=== PATIENT | female | born 1950 | race Caucasian/White ===

== ENCOUNTER 2020-10-24 11:43 | Emergency (ER) | payer MEDICARE, OTHER, SELFPAY ==
--- NOTE | 2020-10-24 11:43 | CT_ITS ---
WS: [id number] CT HEAD TECHNIQUE: Noncontrast CT of the head obtained from the skullbase to the vertex. CLINICAL INFORMATION: syncope COMPARISON: None. DLP: 852.[address] scans at [facility] use at least one of these dose optimization techniques: automat ed exposure control; mA and/or kV adjustment per patient size (includes targeted exams where dose is matched to clinical indication); or iterative reconstruction. FINDINGS: No evidence of intracranial hemorrhage or mass effect. Ventricular system and basal cisterns are brothers nt. Mild small vessel changes with moderate parenchymal volume loss more prominent in the frontal lob es. No extra-axial fluid collections. No evidence of mass or mass effect. Normal berumen-white different iation. Paranasal sinuses and mastoid air cells are well aerated. .Normal visualized soft tissues. CT/CT head wo con* [id number] IMPRESSION: 1. No evidence of intracranial hemorrhage or mass effect. 2. Mild small vessel changes with moderate parenchymal volume loss in the fron ubaldo lobes. 3. No acute intracranial findings.
--- NOTE | 2020-10-24 11:43 | XR_ITS ---
WS: [id number] Portable AP upright chest, 10/24/2020 Clinical Data: syncope Comparison: None. Findings: No nodules, masses or effusions are seen. The heart is normal. The pulmonary vascularity is not increased. No pneumonia or pneumothorax is seen. The aortic arch shows mild tortuosity. There ar e monitor leads on the chest and abdominal cooney. XR/XR chest 1V portable [id number] Impression: Atherosclerosis.
--- NOTE | 2020-10-24 11:44 | ECG_ITS ---
[facility] Test Date: 2020-10-24 Pat Name: Farnaz Kirkland Department: Room: Gender: Female [employer]: : 1950 Requested By: Elmer Potter Order Number: [id number] Diamond MD: Juan Carlos Gilmore M.D. Measurements Intervals [place] Rate: 79 P: 26 VT: 176 QRS: -13 QRSD: 100 T: 9 QT: 387 QTc: 444 Interpretive Statements SINUS RHYTHM No previous ECG available for comparison Electronically Signed On 10-24-2020 16:02:39 PEDICURIST by Juan Carlos Gilmore M.D. [id number]
[2020-10-24 11:48] VITALS: BP 191/84; PULSE 80; RESP 18; O2SAT 92; BMI 34.0
[2020-10-24 12:05] VITALS: BP 171/89; PULSE 83; RESP 15; O2SAT 92
[2020-10-24 12:21] LABS: Basophils # 0.1 10^3/uL (0.0-0.1); Basophils % 0.7 %; Eosinophils # 0.2 10^3/uL (0.0-0.8); Eosinophils % 2.8 %; Hematocrit 40.1 % (37.0-47.0); Hemoglobin 13.1 g/dL (11.5-15.3); Lymphocytes % 40.8 %; Mean Corpuscular HGB Conc 32.7 g/dL (30.0-36.0); Mean Corpuscular Hemoglobin 29.7 pg (28.0-34.0); Mean Corpuscular Volume 90.9 fL (81-99); Mean Platelet Volume 9.1 fL (7.4-10.4); Monocytes # 0.7 10^3/uL (0.2-0.9); Neutrophils # 3.28 10^3/uL (1.8-7.7); Neutrophils % 45.2 %; Nucleated Red Blood Cells % 0 %; Platelet Count 341 10^3/cmm (130-400); Red Blood Count 4.41 10^6/uL (4.1-5.3); Red Cell Distribution Width 13.1 % (12.1-15.1); White Blood Count 7.3 10^3/uL (4.0-10.0)
[2020-10-24] MEDS: ondansetron 2 mg/ML SDV 2 mL 4 MG IVP (12:25)
[2020-10-24] MEDS: sodium chloride 0.9% 1,000 ML 999 ML IV (12:25)
[2020-10-24] MEDS: labetalol 5 mg/mL SDV 20mL 10 MG IVP ×2 (12:26→16:03)
[2020-10-24 12:42] LABS: INR 0.96 (0.8-1.2)
[2020-10-24 12:51] LABS: Lactate (Lactic Acid level) 1.5 mmol/L (0.5-2.2)
[2020-10-24 12:55] LABS: Troponin(5th) Baseline 7 ng/L (0-10)
[2020-10-24 13:04] LABS: Alanine Aminotransferase 22 U/L (0-33); Albumin Level 4.3 g/dL (3.5-5.2); Alkaline Phosphatase 85 IU/L (35-105); Anion Gap 14.6 (5-19); Aspartate Amino Transferase 21 U/L (0-32); Blood Urea Nitrogen 13 mg/dL (8-23); Calcium 9.1 mg/dL (8.5-10.5); Carbon Dioxide 22 mmol/L (22-29); Chloride 107 mmol/L (98-107); Creatinine Clr Calc Pharmacy 61.5518; Globulin 2.7 g/dL (1.3-4.6); Glucose 128 mg/dL (65-115); NT Pro B Type Natriuretic Pept 166 pg/mL (0-125); Osmolality Calculated 292 mOsm/kg (285-295); Potassium 3.6 mmol/L (3.5-5.1); Sodium 140 mmol/L (136-145); Total Bilirubin 0.8 mg/dL (0.15-1.2)
--- NOTE | 2020-10-24 13:21 | W.ED.SYNCOPE ---
HPI - Syncope General: Chief Complaint: Syncope Stated Complaint: SYNCOPE Time Seen by Provider: 10/24/20 11:43 History of Present Illness: HPI narrative: The patient is a 70-year-old female with no reported medical problems who comes to the ER complaining she passed out while her was getting a bone marrow biopsy. She laid there on the ground for a few seconds and woke up but continued to feel generally weak. She does not follow a physician regularly for years and has not no medical conditions that she knows of but does not see a physician. Her blood pressure was 191/84 on arrival. I discussed to her that she likely has chronic hypertension and needs to start seeing a primary care physician. She understands and will follow up. Associated symptoms: Deny abdominal pain, chest pain or headache(s) Review of Systems General: Reports: 10 or more systems reviewed and unremarkable except in HPI and below Const: Denies: fatigue Eyes: Denies: change in vision, blurry vision or eye redness ENMT: Denies: throat pain, swelling of lips/tongue, ear or mastoid pain or nasal congestion Card: Denies: chest pain, palpitations, irregular heart rhythm, edema, dyspnea on exertion or orthopnea Resp: Denies: dyspnea, productive cough or non-productive cough GI: Denies: abdominal pain, diarrhea or GI cramping : Denies: flank pain, difficulty voiding, urinary frequency or urinary urgency Musc: Denies: neck pain, back pain, extremity pain, joint pain, joint redness, limited range of motion or muscle weakness Skin/Breast: Denies: rash, pruritus, erythema, skin pain or skin tenderness Neuro: Denies: headache(s), numbness in extremities, weakness in extremities, sensory changes, difficulty walking, dizziness, confusion or Slurred speech present Psych: Denies: anxiety or depression Endo: Denies: polyuria All/Imm: Denies: urticaria, throat swelling or tongue swelling PFSH ED PFSH: Medical History (Updated 10/24/20 @ 17:09 by Elmer Potter MD) Coronary artery disease Stroke Surgical History H/O two vessel coronary artery bypass graft Family History (Updated 10/24/20 @ 16:30 by Franklin Sky MD) Mother CAD (coronary artery disease) Father , Reports he . She could not provide any specifics. No problems noted. Social History (Updated 10/24/20 @ 16:31 by Franklin Sky MD) Smoking and tobacco status: former smoker Quit status (tobacco): has quit using tobacco Year quit tobacco: 10 to 20 years ago Physical Exam Const: COMMON NORMALS: no acute distress, average body habitus, patient oriented x3, no limitations, healthy appearing, alert and well nourished GENERAL APPEARANCE: cooperative, comfortable, well kempt and well developed ORIENTATION/CONSCIOUSNESS: Yes awake, Yes oriented to person, Yes oriented to place and Yes oriented to time HENMT: COMMON NORMALS: normocephalic, external ears normal and Normal external nose present HEAD & SCALP: normal to inspection and normocephalic NOSE: Normal external nose present EXTERNAL EAR: Yes external ears normal MOUTH: Normal oral and palatal mucosa present THROAT: posterior oropharynx normal Eye: COMMON NORMALS: Equal, round and reactive pupils present and EOMs intact bilaterally GENERAL EYE: appearance normal, both eyes and all related structures PUPIL: Yes Equal, round and reactive pupils present Neck/C-Spine: COMMON NORMALS: full ROM, no lymphadenopathy, no meningeal signs and no JVD GENERAL: Yes normal visual inspection Lymph: LYMPHATIC: no lymphadenopathy noted Chest: COMMONS NORMALS: normal inspection of the chest and normal palpation of entire chest wall Resp: COMMON NORMALS: normal respiratory effort, No retractions, No use of accessory muscles, clear to auscultation bilaterally and percussion normal EFFORT & INSPECTION: Yes able to speak in complete sentences AUSCULTATION: clear to auscultation bilaterally PERCUSSION: percussion normal Cardio: COMMON NORMALS: no JVD, regular rate, regular rhythm, S1 normal heart sound present, S2 normal heart sound present and Peripheral pulses 2+ throughout RATE: regular rate RHYTHM: regular rhythm HEART SOUNDS: S1 normal heart sound present and S2 normal heart sound present PERIPHERAL PULSES: Peripheral pulses 2+ throughout GI: COMMON NORMALS: Normal to inspection, nondistended, normoactive bowel sounds present, Soft to palpation, non-tender and no masses INSPECTION: Yes normal to inspection PALPATION: Yes Soft to palpation : COMMON NORMALS: Yes no CVA tenderness BLADDER/KIDNEY EXAM: Yes no CVA tenderness Back/Pelvis: COMMON NORMALS: no CVA tenderness, thoracic and lumbar spine normal to inspection, no thoracic nor lumbar tenderness and thoraco-lumbar ROM normal Extremity: COMMON NORMALS: normal to inspection, full ROM, capillary refill normal, no joint enlargement and no pedal edema GENERAL: Yes normal exam except as noted Neuro: COMMON NORMALS: patient oriented x3, CN's II-XII intact bilaterally, moves all extremities, no focal motor deficits, no sensory deficits noted and gait normal SENSORIUM/ORIENTATION: Yes alert, Yes oriented to person, Yes oriented to place and Yes oriented to time MENINGEAL SIGNS: Yes no meningeal signs Psych: COMMON NORMALS: mental status grossly normal, Normal thought process present, cooperative, normal affect and speech normal APPEARANCE: Yes well kempt ATTITUDE: Yes calm SPEECH: Yes normal speech THOUGHT PROCESS: Normal thought process present Skin: COMMON NORMALS: no rashes or lesions noted GENERAL SKIN EXAM: no rashes or lesions noted Course Vital Signs: Vital signs: Vital Signs Pulse Rate 75 10/24/20 15:50 Respiratory Rate 16 10/24/20 15:50 Blood Pressure 187/83 10/24/20 15:50 Pulse Oximetry 96 10/24/20 15:50 MDM - Syncope MDM Narrative: Medical decision making narrative: The patient came in after an episode of vasovagal syncope after seeing blood during her 's bone marrow biopsy. On arrival she was alert and oriented x4 but slightly sleepy as well as hypertensive at 191/84. She was given multiple doses of labetalol to reduce her blood pressure and her mental status normalized spontaneously during her stay. She was discharged with 20 mg lisinopril daily and told to keep a blood pressure diary as well as follow-up with her primary care physician in 3 to 5 days bring the diary with her. ER with worsening symptoms. She understands and will follow up. I discussed the risks of hypertension such as early AK, stroke, renal failure, early and she understands and will follow up. Placed a case management referral to help her with her follow-up Lab Data: Labs: Lab Results 10/24/20 10/24/20 10/24/20 Range/Units 12:15 12:15 12:15 WBC 7.3 (4.0-10.0) 10^3/ uL RBC 4.41 (4.1-5.3) 10^6/u L Hgb 13.1 (11.5-15.3) g/dL Hct 40.1 (37.0-47.0) % MCV 90.9 (81-99) fL MCH 29.7 (28.0-34.0) pg MCHC 32.7 (30.0-36.0) g/dL RDW 13.1 (12.1-15.1) % Plt Count 341 (130-400) 10^3/c mm MPV 9.1 (7.4-10.4) fL Neut % (Auto) 45.2 % Lymph % (Auto) 40.8 % [place] % (Auto) 9.0 % Eos % (Auto) 2.8 % Baso % (Auto) 0.7 % Neut # (Auto) 3.28 (1.8-7.7) 10^3/u L Lymph # (Auto) 3.0 (0.8-4.8) 10^3/u L [place] # (Auto) 0.7 (0.2-0.9) 10^3/u L Eos # (Auto) 0.2 (0.0-0.8) 10^3/u L Baso # (Auto) 0.1 (0.0-0.1) 10^3/u L Nucleated RBC % (a uto) 0 % Nucleated RBCs # 0.0 /100WBC PT 13.00 (12.1-14.9) SECO NDS INR 0.96 (0.8-1.2) D-Dimer 0.82 H (0-0.59) ug/mIFE U Sodium 140 (136-145) mmol/L Potassium 3.6 (3.5-5.1) mmol/L Chloride 107 (98-107) mmol/L Carbon Dioxide 22 (22-29) mmol/L Anion Gap 14.6 (5-19) BUN 13 (8-23) mg/dL Creatinine 0.7 (0.5-0.9) mg/dL GFR Calculation Not Reportable Glucose 128 H (65-115) mg/dL Calculated Osmolal ity 292 (285-295) mOsm/k g Lactate (0.5-2.2) mmol/L Calcium 9.1 (8.5-10.5) mg/dL Total Bilirubin 0.8 (0.15-1.2) mg/dL AST 21 (0-32) U/L ALT 22 (0-33) U/L Alkaline Phosphata se 85 (35-105) IU/L Troponin T Baselin e (0-10) ng/L Troponin T 120 Min florecita (0-10) ng/L Delta Troponin T (0-10) ABS# NT-Pro-B Natriuret Pep 166 H (0-125) pg/mL Total Protein 7.0 (6.6-8.7) g/dL Albumin 4.3 (3.5-5.2) g/dL Globulin 2.7 (1.3-4.6) g/dL Urine Color (Yellow) Urine Appearance (CLEAR) Urine pH (5-7) Ur Specific Gravit y (1.005-1.030) Urine Protein (Negative) Urine Glucose (UA) (Normal) Urine Ketones (Negative) Urine Blood (Negative) Urine Nitrate (Negative) Urine Bilirubin (Negative) Urine Urobilinogen (Negative) mg/dL Ur Leukocyte Aruna ase (Negative) 10/24/20 10/24/20 10/24/20 Range/Units 12:15 12:15 13:36 WBC (4.0-10.0) 10^3/ uL RBC (4.1-5.3) 10^6/u L Hgb (11.5-15.3) g/dL Hct (37.0-47.0) % MCV (81-99) fL MCH (28.0-34.0) pg MCHC (30.0-36.0) g/dL RDW (12.1-15.1) % Plt Count (130-400) 10^3/c mm MPV (7.4-10.4) fL Neut % (Auto) % Lymph % (Auto) % [place] % (Auto) % Eos % (Auto) % Baso % (Auto) % Neut # (Auto) (1.8-7.7) 10^3/u L Lymph # (Auto) (0.8-4.8) 10^3/u L [place] # (Auto) (0.2-0.9) 10^3/u L Eos # (Auto) (0.0-0.8) 10^3/u L Baso # (Auto) (0.0-0.1) 10^3/u L Nucleated RBC % (a uto) % Nucleated RBCs # /100WBC PT (12.1-14.9) SECO NDS INR (0.8-1.2) D-Dimer (0-0.59) ug/mIFE U Sodium (136-145) mmol/L Potassium (3.5-5.1) mmol/L Chloride (98-107) mmol/L Carbon Dioxide (22-29) mmol/L Anion Gap (5-19) BUN (8-23) mg/dL Creatinine (0.5-0.9) mg/dL GFR Calculation Glucose (65-115) mg/dL Calculated Osmolal ity (285-295) mOsm/k g Lactate 1.5 (0.5-2.2) mmol/L Calcium (8.5-10.5) mg/dL Total Bilirubin (0.15-1.2) mg/dL AST (0-32) U/L ALT (0-33) U/L Alkaline Phosphata se (35-105) IU/L Troponin T Baselin e 7 (0-10) ng/L Troponin T 120 Min florecita (0-10) ng/L Delta Troponin T (0-10) ABS# NT-Pro-B Natriuret Pep (0-125) pg/mL Total Protein (6.6-8.7) g/dL Albumin (3.5-5.2) g/dL Globulin (1.3-4.6) g/dL Urine Color Yellow (Yellow) Urine Appearance Clear (CLEAR) Urine pH 7 (5-7) Ur Specific Gravit y 1.005 (1.005-1.030) Urine Protein Neg (Negative) Urine Glucose (UA) Norm (Normal) Urine Ketones Negative (Negative) Urine Blood Neg (Negative) Urine Nitrate Negative (Negative) Urine Bilirubin Neg (Negative) Urine Urobilinogen Norm (Negative) mg/dL Ur Leukocyte Aruna ase Negative (Negative) 10/24/20 Range/Units 14:05 WBC (4.0-10.0) 10^3/ uL RBC (4.1-5.3) 10^6/u L Hgb (11.5-15.3) g/dL Hct (37.0-47.0) % MCV (81-99) fL MCH (28.0-34.0) pg MCHC (30.0-36.0) g/dL RDW (12.1-15.1) % Plt Count (130-400) 10^3/c mm MPV (7.4-10.4) fL Neut % (Auto) % Lymph % (Auto) % [place] % (Auto) % Eos % (Auto) % Baso % (Auto) % Neut # (Auto) (1.8-7.7) 10^3/u L Lymph # (Auto) (0.8-4.8) 10^3/u L [place] # (Auto) (0.2-0.9) 10^3/u L Eos # (Auto) (0.0-0.8) 10^3/u L Baso # (Auto) (0.0-0.1) 10^3/u L Nucleated RBC % (a uto) % Nucleated RBCs # /100WBC PT (12.1-14.9) SECO NDS INR (0.8-1.2) D-Dimer (0-0.59) ug/mIFE U Sodium (136-145) mmol/L Potassium (3.5-5.1) mmol/L Chloride (98-107) mmol/L Carbon Dioxide (22-29) mmol/L Anion Gap (5-19) BUN (8-23) mg/dL Creatinine (0.5-0.9) mg/dL GFR Calculation Glucose (65-115) mg/dL Calculated Osmolal ity (285-295) mOsm/k g Lactate (0.5-2.2) mmol/L Calcium (8.5-10.5) mg/dL Total Bilirubin (0.15-1.2) mg/dL AST (0-32) U/L ALT (0-33) U/L Alkaline Phosphata se (35-105) IU/L Troponin T Baselin e (0-10) ng/L Troponin T 120 Min florecita 6.48 (0-10) ng/L Delta Troponin T -0.52 L (0-10) ABS# NT-Pro-B Natriuret Pep (0-125) pg/mL Total Protein (6.6-8.7) g/dL Albumin (3.5-5.2) g/dL Globulin (1.3-4.6) g/dL Urine Color (Yellow) Urine Appearance (CLEAR) Urine pH (5-7) Ur Specific Gravit y (1.005-1.030) Urine Protein (Negative) Urine Glucose (UA) (Normal) Urine Ketones (Negative) Urine Blood (Negative) Urine Nitrate (Negative) Urine Bilirubin (Negative) Urine Urobilinogen (Negative) mg/dL Ur Leukocyte Aruna ase (Negative) Discharge Plan Discharge Patient Disposition: Home Clinical Impression: Vasovagal syncope, Hypertension Condition: Stable Prescriptions: New lisinopril 20 mg tablet 20 mg PO DAILY Qty: 30 RF: 0 Discharge Orders: Discharge ED (Routine); Ordered 10/24/20 Ordered By: Elmer Potter Discharge Diet: Advance as tolerated Discharge Activity: Resume usual activity Patient Instructions: Syncope (ED), Hypertension (ED), Opioid Safety Activity Restrictions/Additional Instructions: You came in for an episode of syncope likely related to seeing blood which is scary to you. Is called vasovagal syncope. Please drink lots of fluids at home and continue to avoid stressful situations for the next day or so. Also check your blood pressure at home multiple times a day and keep a diary as well as start taking medication lisinopril I have prescribed to you. You will likely need more medication than this at higher doses to control your blood pressure however this would be a good start. Please follow-up with primary care physician in 3 to 5 days to discuss this further. Return to the ER with worsening symptoms or any chest pain, shortness of breath, or feelings like you are going to pass out again. Coding Level of Care Code ED Panel Sewer for Rolando Barksdale
[2020-10-24 13:38] LABS: D Dimer 0.82 ug/mIFEU (0-0.59)
--- NOTE | 2020-10-24 13:44 | ECG_ITS ---
[facility] Test Date: 2020-10-24 Pat Name: Farnaz Kirkland Department: Room: Gender: Female [employer]: : 1950 Requested By: Elmer Potter Order Number: [id number] Lobo MD: Juan Carlos Gilmore M.D. Measurements Intervals [place] Rate: 69 P: 51 DE: 192 QRS: 7 QRSD: 93 T: 18 QT: 430 QTc: 463 Interpretive Statements SINUS RHYTHM Compared to ECG 10/24/2020 11:53:04 No significant changes Electronically Signed On 10-24-2020 16:05:41 LEGAL ASSISTANT by Juan Carlos Gilmore M.D. [email or web address] [id number]
[2020-10-24 13:47] LABS: Add Urine Microscopic? NO
[2020-10-24 14:06] VITALS: BP 155/78; PULSE 70; RESP 9; O2SAT 96
[2020-10-24 14:13] LABS: Bilirubin Urine Neg (Negative); Blood Urine Neg (Negative); Glucose Urine UA Norm (Normal); Ketones Urine Negative (Negative); Leukocyte Esterase Urine Negative (Negative); Nitrate Urine Negative (Negative); Protein Urine Neg (Negative); Specific Gravity, Urine 1.005 (1.005-1.030); Urine Appearance Clear (CLEAR); Urine Color Yellow (Yellow); Urobilinogen Urine Norm (Negative); pH Urine 7 (5-7)
[2020-10-24 14:37] LABS: Troponin 5 2HR 6.48 ng/L (0-10)
[2020-10-24 14:39] LABS: Troponin 5 2HR Delta -0.52 ABS# (0-10)
[2020-10-24 15:50] VITALS: BP 187/83; PULSE 75; RESP 16; O2SAT 96
--- NOTE | 2020-10-24 16:18 | P.HP_ITS ---
Providers/Chief Complaint Chief Complaint: SYNCOPE History of Present Illness Farnaz Kirkland is a 70 year old female presents emergency department with signs and symptoms of stroke. She had right-sided weakness and her NIH stroke scale was in low 20s as per Dr. Villarreal. Patient was seen and evaluated by Dr. Chacon and she received TPA. Per ER records it appears that patient passed out while her was getting bone biopsy. Patient told me that she is and lives in assisted living. She has no children. During my evaluation patient's right-sided paralysis significantly improved and patient only has very minimal weakness of the upper and lower extremity. She does however have significant expressive aphasia. She understands and follows commands appropriately. She could not recall or describe her presentation details. She is being admitted to ICU for close monitoring and treatment. Review of Systems Const: Denies: fever(s) or chills Eyes: Denies: change in vision ENMT: Denies: throat pain or change in hearing Card: Denies: chest pain, edema or lightheadedness Resp: Denies: dyspnea or productive cough GI: Reports: constipation; Denies: abdominal pain, nausea, vomiting, dysphagia, diarrhea, hematochezia or melena : Denies: difficulty voiding Musc: Denies: joint pain or joint swelling Skin/Breast: Denies: rash or erythema Neuro: Reports: weakness in extremities (Right upper and lower); Denies: headache(s) Psych: Denies: depression or suicidal ideation Endo: Denies: excessive sweating Wilian/Lymph: Denies: easy bleeding or tender lymph nodes All/Imm: Denies: throat swelling Medications/Allergies Home Medications Medication Instructions Recorded Confirmed Last Taken Type No Known Home Medications 10/24/20 10/24/20 Unknown History Allergies Allergy/AdvReac Type Severity Reaction Status Date / Time No Known Allergies Allergy Verified 10/24/20 11:56 PFSH Acute PFSH: Medical History (Updated 10/24/20 @ 16:29 by Franklin Sky MD) Coronary artery disease Stroke Surgical History H/O two vessel coronary artery bypass graft Family History (Updated 10/24/20 @ 16:30 by Franklin Sky MD) Mother CAD (coronary artery disease) Father , Reports he . She could not provide any specifics. No problems noted. Social History (Updated 10/24/20 @ 16:31 by Franklin Sky MD) Smoking and tobacco status: former smoker Quit status (tobacco): has quit using tobacco Year quit tobacco: 10 to 20 years ago Vitals/I&O/Wt Last Vital Signs Pulse 75 10/24/20 15:50 Resp 16 10/24/20 15:50 BP 187/83 10/24/20 15:50 Pulse Ox 96 10/24/20 15:50 Weight last 48 hrs Weight 81.647 kg Physical Exam Const: COMMON NORMALS: no acute distress, patient oriented x3 and alert HENMT: COMMON NORMALS: normocephalic and atraumatic HEAD & SCALP: normocephalic and atraumatic Eye: COMMON NORMALS: EOMs intact bilaterally, conjunctivae normal and no scleral icterus CONJUNCTIVA: Yes conjunctivae normal Neck/C-Spine: COMMON NORMALS: no lymphadenopathy and no meningeal signs Lymph: LYMPHATIC: no lymphadenopathy noted Chest: COMMONS NORMALS: normal palpation of entire chest wall (Post CABG scar noted) Resp: COMMON NORMALS: No use of accessory muscles and clear to auscultation bilaterally AUSCULTATION: clear to auscultation bilaterally Cardio: COMMON NORMALS: regular rate, regular rhythm and No murmurs present (Cardio) RATE: regular rate RHYTHM: regular rhythm OTHER: No lower extremity edema GI: COMMON NORMALS: Soft to palpation and non-tender PALPATION: Yes Soft to palpation RECTAL EXAM: deferred : COMMON NORMALS: Yes no CVA tenderness BLADDER/KIDNEY EXAM: Yes no CVA tenderness Back/Pelvis: COMMON NORMALS: no CVA tenderness and thoracic and lumbar spine normal to inspection Extremity: COMMON NORMALS: normal to inspection and capillary refill normal Neuro: OTHER: Minimal right-sided weakness in the upper and lower extremities. Good shoulder shrug bilaterally. No pronator drift. Cranial nerves II to XII appear intact Psych: COMMON NORMALS: mental status grossly normal, Normal thought process present (But patient has expressive aphasia and frequently cannot express herself.) and cooperative THOUGHT PROCESS: Normal thought process present Skin: COMMON NORMALS: no rashes or lesions noted GENERAL SKIN EXAM: no rashes or lesions noted Data : 10/24/20 12:15 10/24/20 12:15 A&P Assessment and plan (1) Coronary artery disease: Status: Acute (2) Acute cerebrovascular accident (CVA): Status: Acute Additional A&P Information PLAN: Reconcile medications Admit to ICU and closely monitor post TPA Avoid any antihypertensive medications for now. Start patient on antiplatelet medications tomorrow pending home medication evaluation. Will monitor on telemetry. Obtain echocardiogram and carotid artery ultrasound. Check hemoglobin A1c and lipid profile in a.m. We will gently hydrate with LR. PT/OT/ST. Coding Level of Care Code Acute Corporate Director Of Human Resources for Rolando Barksdale Diagnoses Coronary artery disease I25.10 Acute cerebrovascular accident (CVA) I63.9
[2020-10-24 17:19] VITALS: BP 169/85
--- NOTE | 2020-10-25 11:38 | DCPLANNER ---
dining room manager had message to speak with patient about getting established with a primary care physician. dining room manager spoke with patient, offered to help get her established with a primary care physician. Patient stated that she has taken care of getting a primary care physician, [place] [facility] [place]
== END 2020-10-24 17:20 | disposition home or self-care (01) ==
PROVIDERS: Emergency Provider Family Medicine
DX: R55 Syncope and collapse (principal); I10 Essential (primary) hypertension; Z87.891 Personal history of nicotine dependence
CPT/HCPCS: 36415; 70450; 71045; 80053; 81003; 83605; 83880; 84484; 85025; 85378; 85610; 93005; 96361; 96374; 96375; 96376; 99284; J2405; J3490; J7030

== ENCOUNTER 2021-01-29 08:55 | Outpatient (CLI) | payer MEDICARE, OTHER, SELFPAY ==
--- NOTE | 2021-01-29 09:02 | MM_ITS ---
WS: [id number] BILATERAL SCREENING DIGITAL MAMMOGRAM WITH CAD HISTORY: SCREENING COMPARISON: None available. Bilateral CC and MLO views submitted. Computer aided detection analyzed. Breast composition: The breasts are heterogeneously dense, which may obscure small masses. No suspici ous masses, microcalcifications or architectural distortion. Benign calcifications and breast arteria l calcifications are present. MM/[place] [id number] IMPRESSION: BI-RADS: 2-Benign FOLLOW UP: 1 Year Follow-up
== END 2021-01-29 08:56 | disposition home or self-care (01) ==
LOC: RADSHAW 08:59
PROVIDERS: PCP Nurse Practitioner Family; Visit Provider Nurse Practitioner Family
DX: Z12.31 Encounter for screening mammogram for malignant neoplasm of breast (principal)
CPT/HCPCS: 77067

== ENCOUNTER 2023-06-25 12:33 | Outpatient (CLI) | payer MEDICARE, SELFPAY ==
--- NOTE | 2023-06-25 12:39 | XR_ITS ---
WS: [id number] DEXA (DUAL ENERGY X-RAY ABSORPTIOMETRY) Bone mineral density was performed using a Fund[employer] machine. HISTORY: POSTMENOPAUSAL COMPARISON: None available. Lumbar spine BMD (L1-L4): 0.951 g/cm2 T score: -1.9 Z score: -0.3 Total hip BMD: Left: 0.770 g/cm2. T score: -1.9 Z score: -0.3 Right: 0.757 g/cm2. T score: -2.0 Z score: -0.4 10 year probability of a major osteoporotic fracture is 17.3%. IMPRESSION: OSTEOPENIA based upon the WHO classification for females.
--- NOTE | 2023-06-25 12:58 | MM_ITS ---
WS: [id number] BILATERAL SCREENING DIGITAL TOMOSYNTHESIS MAMMOGRAM WITH CAD HISTORY: SCREENING COMPARISON: 01/29/2021 Bilateral CC and MLO views with tomosynthesis and synthetic mammography submitted. Computer aided det ection analyzed. Breast composition: The breasts are heterogeneously dense, which may obscure small masses. No suspici ous masses, microcalcifications or architectural distortion. Benign arterial calcifications and round calcifications. IMPRESSION: MM/[place] [id number] BI-RADS: 2-Benign FOLLOW UP: 1 Year Follow-up
== END 2023-06-25 12:34 | disposition home or self-care (01) ==
PROVIDERS: PCP Nurse Practitioner Family; Visit Provider Nurse Practitioner Family
DX: Z12.31 Encounter for screening mammogram for malignant neoplasm of breast (principal); Z78.0 Asymptomatic menopausal state; M85.80 Other specified disorders of bone density and structure, unspecified site
CPT/HCPCS: 77063; 77067; 77080

== ENCOUNTER 2025-06-27 12:20 | Outpatient (CLI) | payer MEDICARE, SELFPAY ==
--- NOTE | 2025-06-27 12:26 | MM_ITS ---
WS: [id number] BILATERAL 3D TOMOSYNTHESIS DIGITAL SCREENING MAMMOGRAPHY WITH CAD CLINICAL INFORMATION: SCREENING HISTORY: Screening mammogram. No current complaints. COMPARISON: 2022 TECHNIQUE: Bilateral CC and MLO views. FINDINGS: The breasts are composed of heterogeneous fibroglandular density tissue, which can limit the detection of small underlying mass lesions. No suspicious mass, asymmetry, calcifications, or architectural distortion. No evidence of malignancy. Vascular calcification. Punctate and lucent centered calcification. MM/MM [facility] tomosynthesis [id number] IMPRESSION: DENSITY: The breasts are heterogeneously dense, which may obscure small masses. BI-RADS: 2 - Benign FOLLOW UP: 1 Year Follow-up Recommend return to annual screening mammography.
--- NOTE | 2025-06-27 12:26 | XR_ITS ---
WS: [id number] DEXA (DUAL ENERGY X-RAY ABSORPTIOMETRY) Bone mineral density was performed using a [employer] machine. HISTORY: OSTEOPENIA AFTER MENOPAUSE COMPARISON: 06/25/2023 Lumbar spine BMD (L1-L4): 0.919 g/cm2 T score: -2.2 Z score: -0.4 Total hip BMD: Left: 0.759 g/cm2. T score: -2.0 Z score: -0.2 Right: 0.713 g/cm2. T score: -2.3 Z score: -0.5 10 year probability of a major osteoporotic fracture is 18.4%. Compared to the prior study from 06/25/2023. Lumbar spine bone mineral density has decreased by 3.4%. Bilateral hips bone mineral density has decreased by 3.7%. XR/XR DEXA axial skeleton* 12561 IMPRESSION: OSTEOPENIA based upon the WHO classification for females. Significant decrease in bone mineral density within the lumbar spine and hips s jose the prior study.
== END 2025-06-27 12:21 | disposition home or self-care (01) ==
PROVIDERS: PCP Nurse Practitioner Family; Visit Provider Nurse Practitioner Family
DX: Z12.31 Encounter for screening mammogram for malignant neoplasm of breast (principal); Z13.820 Encounter for screening for osteoporosis; Z78.0 Asymptomatic menopausal state; M85.89 Other specified disorders of bone density and structure, multiple sites; R92.333 Mammographic heterogeneous density, bilateral breasts; R92.323 Mammographic fibroglandular density, bilateral breasts; R92.1 Mammographic calcification found on diagnostic imaging of breast
CPT/HCPCS: 77063; 77067; 77080